=== PATIENT | female | born 1990 | race Caucasian/White ===

== ENCOUNTER 2020-04-21 14:15 | Outpatient (CLI) | payer SELFPAY ==
[2020-04-21 14:50] VITALS: BP 109/63
[2020-04-21] MEDS ORDERED: ACETAMINOPHEN 500 MG TAB PO ONE (16:29)
[2020-04-21] MEDS ORDERED: LACTATED RINGERS 500 ML IV ONE (16:29)
== END 2020-04-21 16:37 | disposition home or self-care (01) ==
LOC: APU 14:15 → TRG 14:15
PROVIDERS: ATTEND Obstetrics & Gynecology
DX: O26.893 Other specified pregnancy related conditions, third trimester (principal); R10.9 Unspecified abdominal pain; Z3A.36 36 weeks gestation of pregnancy
CPT/HCPCS: 59025

== ENCOUNTER 2020-05-08 17:37 | Outpatient (CLI) | payer OTHER ==
[2020-05-08 18:04] VITALS: BP 118/70
[2020-05-08] MEDS ORDERED: FLUCONAZOLE 100 MG/10 ML ORAL SYRINGE PO ONE (19:00)
== END 2020-05-08 20:15 | disposition home or self-care (01) ==
LOC: TRG 17:37 → APU 17:39 → TRG 20:15
PROVIDERS: ATTEND Obstetrics & Gynecology
DX: Z34.93 Encounter for supervision of normal pregnancy, unspecified, third trimester (principal); Z3A.38 38 weeks gestation of pregnancy
CPT/HCPCS: 36415; 59025; 84112; J1450

== ENCOUNTER 2020-05-17 17:14 | Inpatient (IN) | payer OTHER ==
[2020-05-17 17:51] LABS: Bacteria,Urine 1+ /HPF (Negative); Bilirubin,Urine NEG (Negative); Blood,Urine NEG (Negative); Color,Urine Yellow (Yellow); Mucus,Urine 2+ /HPF; Protein,Urine <15 mg/dL mg/dL (Negative)
[2020-05-17 17:56] LABS: Amphetamine Screen,Urine Negative; Benzodiazepines Screen,Urine Negative; Cannabinoid Screen,Urine Negative; Cocaine Screen,Urine Negative; Methadone Screen,Urine Negative; Opiate Screen,Urine Negative
[2020-05-17] MEDS ORDERED: LACTATED RINGERS 1,000 ML ONE (18:20)
[2020-05-17] MEDS ORDERED: miSOPROStol 200 MCG TAB PR PRN (18:28)
[2020-05-17] MEDS ORDERED: ONDANSETRON 4 MG/2 ML INJ IV PRN ×2 (18:28→23:07)
[2020-05-17] MEDS ORDERED: fentaNYL 100 MCG/2 ML INJ IV PRN (18:28)
[2020-05-17] MEDS ORDERED: MINERAL OIL 30 ML ORAL LIQD PO PRN (18:28)
[2020-05-17] MEDS ORDERED: METHYLERGONOVINE MALEATE 0.2 MG/ML VIAL IM PRN (18:28)
[2020-05-17] MEDS ORDERED: ePHEDrine SULFATE 50 MG/1 ML INJ IV PRN (18:28)
[2020-05-17] MEDS ORDERED: CARBOPROST TROMETHAMINE 250 MCG/1 ML INJ IM PRN (18:28)
[2020-05-17] MEDS ORDERED: TERBUTALINE 1 MG/1 ML INJ SUB-Q PRN (18:28)
[2020-05-17] MEDS ORDERED: OXYTOCIN 10 UNIT/1 ML INJ IM PRN (18:28)
[2020-05-17] MEDS ORDERED: LACTATED RINGERS 1,000 ML IV SCH (18:30)
--- NOTE | 2020-05-17 18:36 | History and Physical Report ---
History of Present Illness Date of examination: 05/17/20 Chief complaint: labor contractions History of present illness: pt reports care until December, EDC 05/19/2020 Pt reports hx x 4 - denies hx c/s, uterine surgery, shoulder dystocia, 4th degree or PPH. 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: cancer, chlamydia, fibroids, gonorrhea, hepatitis B, hepatitis C, herpes, HIV, syphilis, trichomonas Family/Genetic History: none - Obstetrical History Expected Date of Delivery: 05/19/20 Actual Gestation: 39 Week(s) 5 Day(s) : 5 Para: 4 Hx # Term Pregnancies: 4 Number of Pregnancies: 0 Spontaneous Abortions: 0 Induced : 0 Number of Living Children: 4 Medications and Allergies Allergies Allergy/AdvReac Type Severity Reaction Status Date / Time No Known Allergies Allergy Verified 05/17/20 17:22 Active Meds: Active Medications Carboprost Tromethamine (Carboprost Tromethamine 250 Mcg/1 Ml Inj) 250 mcg IM ONCE PRN PRN Reason: Uterine Bleeding Ephedrine Sulfate (Ephedrine Sulfate 50 Mg/1 Ml Inj) 10 mg IV Q2M PRN PRN Reason: Hypotension Fentanyl (Fentanyl 100 Mcg/2 Ml Inj) 100 mcg IV Q2H PRN PRN Reason: Pain,Severe (7-10) LABOR PAIN Lactated Ringer's (Lactated Ringers) 1,000 mls @ 125 mls/hr IV DIRECT GIRISH Oxytocin/Sodium Chloride (Pitocin/Ns 30 Unit/500ml) 30 units in 500 mls @ 40 mls/hr IV TITR GIRISH; Protocol Ampicillin Sodium (Ampicillin/Ns 2 Gm/100 Ml) 2 gm in 100 mls @ 100 mls/hr IV ONCE ONE; Protocol Stop: 05/17/20 19:27 Ampicillin Sodium (Ampicillin/Ns 1 Gm/50 Ml) 1 gm in 50 mls @ 100 mls/hr IV Q4H GIRISH; Protocol Lidocaine (Lidocaine (2%) 20 Mg/1 Ml Vial 20 Ml Mdv) 20 ml INFILTRATI ONCE ONE Stop: 05/17/20 18:29 Methylergonovine Maleate (Methylergonovine Maleate 0.2 Mg/Ml Vial) 0.2 mg IM ONCE PRN PRN Reason: Uterine Bleeding Mineral Oil (Mineral Oil 30 Ml Oral Liqd) 30 ml PO QHS PRN PRN Reason: Constipation Misoprostol (Misoprostol 200 Mcg Tab) 800 mcg MO ONCE PRN PRN Reason: Uterine Bleeding Ondansetron HCl (Ondansetron 4 Mg/2 Ml Inj) 4 mg IV Q8H PRN PRN Reason: Nausea And Vomiting Oxytocin (Oxytocin 10 Unit/1 Ml Inj) 10 unit IM ONCE PRN PRN Reason: Uterine Bleeding Terbutaline Sulfate (Terbutaline 1 Mg/1 Ml Inj) 0.25 mg SUB-Q ONCE PRN PRN Reason: Hyperstimulation/Hypertonicity Review of Systems All systems: negative - Vital Signs Vital signs: Vital Signs Pulse Ox 91 05/08/20 19:23 Temp Pulse Resp BP Pulse Ox 98.6 F 110 H 20 117/72 98 05/17/20 17:42 05/17/20 18:25 05/17/20 17:42 05/17/20 17:42 05/17/20 18:25 - Physical Exam Cardiovascular: Regular rate Lungs: Positive: Clear to auscultation, Normal air movement Abdomen: Positive: normal appearance, soft Genitourinary (Female): Positive: normal external genitalia, normal perenium Vulva: both: normal Vagina: Positive: normal moisture Uterus: Positive: normal size, normal contour Anus/Rectum: Positive: normal perianal skin Extremities: Positive: normal Deep Tendon Reflex Grade: Normal +2 - Obstetrical FHR: category 1 Uterine Contraction Monitor Mode: External Cervical Dilatation: 8 (cephalic, IBOW) Cervical Effacement Percentage: 100 station: 0 Uterine Contraction Frequency (min): 3-6 Uterine Contraction Duration: 60 Uterine Contraction Pattern: Regular Uterine Tone Measurement Phase: Contraction Uterine Contraction Intensity: Strong/Firm Results Abnormal lab results 05/17/20 Range/Units Unknown Urine WBC (Auto) 25.0 H (0.0-6.0) /HPF All other labs normal. Assessment and Plan pt arrived to triage with c/o contractions. states EDC 05/19/2020. anticipate - Patient Problems (1) 39 weeks gestation of Current Visit: Yes Status: Acute (2) Active labor at term Current Visit: Yes Status: Acute (3) GBS screening not performed Current Visit: Yes Status: Acute Plan to address problem: Ampicllin q4hr until delivery (4) Limited care in third trimester Current Visit: Yes Status: Acute Plan to address problem: OB labs ordered NICU made aware
[2020-05-17] MEDS ORDERED: OXYTOCIN DRIP 30 UNITS/500 ML BAG IV SCH (19:00)
[2020-05-17] MEDS ORDERED: AMPICILLIN/NS 2 GM/100 ML 2 GM/100 ML BAG IV ONE (19:00)
[2020-05-17 19:37] LABS: Hematocrit 35.6 % (30.3-42.9); Hemoglobin 12.1 gm/dl (10.1-14.3); Mean Corpuscular HGB Conc 34 % (30-34); Mean Corpuscular Volume 86 fl (79-97); Platelet Count 185 K/mm3 (140-440); Red Blood Count 4.14 M/mm3 (3.65-5.03); Red Cell Distribution Width 14.5 % (13.2-15.2)
[2020-05-17 19:46] LABS: Hepatitis C Virus Antibody Non-Reactive (NonReactive)
[2020-05-17] MEDS ORDERED: LIDOCAINE (2%) 20 MG/1 ML VIAL 20 ML MDV INFILTRATI ONE (20:00)
--- NOTE | 2020-05-17 20:10 | Procedure Note ---
OB Delivery Note - Delivery Date of Delivery: 05/17/20 () [employer] Structure Assembler: BLAIRE SELBY Estimated blood loss: 300cc - Vaginal Delivery presentation: vertex Delivery position: OA (SHANITA) Intrapartum events: no care Delivery induction: none Delivery monitor: external FHT, external uterine Route of delivery: Delivery placenta: spontaneous Delivery cord: 3 umbilical vessels Episiotomy: none Delivery laceration: none Anesthesia: intravenous Delivery comments: female born over intact perineum, SROM at delivery clear fluid. Infant placed skin to skin on mother's abdomen. 3 vessel cord clamped and cut after cessation of pulsation. Placenta delivered intact and complete. Pit to IVF. no lacerations to repair. fundus firm. lochia scan. EBL 200. Apgars 8/9, wt 7#2oz, all counts correct. mother and baby LDR stable. - Infant A at 1 minute: 8 at 5 minutes: 9 Gender: Female (7#2)
[2020-05-17] MEDS ORDERED: AMPICILLIN/NS 1 GM/50 ML 1 GM/50 ML BAG IV SCH (23:00)
[2020-05-17] MEDS ORDERED: WITCH HAZEL/ GLYCERIN PAD TP PRN (23:07)
[2020-05-17] MEDS ORDERED: BENZOCAINE/MENTHOL 20/0.5% TOP SPRAY 56 GM TP PRN (23:07)
[2020-05-17] MEDS ORDERED: diphenhydrAMINE 25 MG CAP PO PRN (23:07)
[2020-05-17] MEDS ORDERED: MAGNESIUM HYDROXIDE (MOM) ORAL LIQD UDC PO PRN (23:07)
[2020-05-17] MEDS ORDERED: LANOLIN/ZINC/DIMETHICONE (LANSINOH) 7 GM TP PRN (23:07)
[2020-05-17] MEDS ORDERED: PROMETHAZINE 25 MG TAB PO PRN (23:07)
[2020-05-17] MEDS: IBUPROFEN 800 MG TAB PO SCH (23:30)
[2020-05-17] MEDS: FERROUS SULFATE 325 MG TAB PO SCH (23:30)
[2020-05-18 09:02] LABS: Hematocrit 31.8 % (30.3-42.9); Hemoglobin 10.6 gm/dl (10.1-14.3)
[2020-05-18] MEDS: PRENATAL VIT27-FE FUMARATE-FOLIC ACID VIT TAB PO SCH (10:07)
[2020-05-18] MEDS: FERROUS SULFATE 325 MG TAB PO SCH ×2 (10:07→22:30)
[2020-05-18] MEDS: IBUPROFEN 800 MG TAB PO SCH ×3 (11:58→23:47)
--- NOTE | 2020-05-18 17:45 | Progress Note ---
Assessment and Plan A: 29 y.o. s/p @ term, no care. Doing well . P: Continue with care. Pt to be seen by case management before discharge home. Anticipate discharge home on 05/19. Subjective - Subjective Date of service: 05/18/20 (Pt doing well. ) Principal diagnosis: s/p @ term, no care Patient reports: appetite normal, voiding normally, pain well controlled, flatus, ambulating normally [place]: doing well Objective - Vital Signs Latest vital signs: Vital Signs Temp Pulse Resp BP BP Pulse Ox 05/18/20 12:15 97.5 F L 87 18 103/52 94 05/18/20 08:49 98.0 F 89 18 105/53 93 05/18/20 04:39 98.1 F 102 H 18 107/59 95 05/18/20 02:30 98.1 F 92 H 16 106/58 98 05/17/20 23:30 18 05/17/20 22:04 98.2 F 106 H 18 110/62 97 05/17/20 21:00 98.6 F 19 05/17/20 20:56 96 H 129/64 05/17/20 20:41 102 H 129/60 05/17/20 20:26 99 H 133/74 05/17/20 20:11 101 H 135/75 05/17/20 19:57 105 H 131/76 05/17/20 19:42 101 H 129/81 05/17/20 19:27 105 H 119/76 05/17/20 18:43 107 H 131/79 05/17/20 18:25 110 H 98 05/17/20 18:20 102 H 97 05/17/20 18:15 95 H 98 05/17/20 18:10 96 H 99 05/17/20 18:05 96 H 98 05/17/20 18:00 108 H 96 05/17/20 17:55 115 H 97 05/17/20 17:50 104 H 97 05/17/20 17:45 108 H 98 Intake and Output 05/18/20 05/18/20 05/18/20 06:59 14:59 22:59 Intake Total 600 Output Total 500 Balance 100 Intake: Intake, Free Water 240 Tube Feeding 360 Output: Urine 500 Void 500 Other: Total, Intake Amount 360 Total, Output Amount 500 # Voids Void 2 - Exam Breasts: Present: deferred Cardiovascular: Present: Regular rate Lungs: Present: Normal air movement Abdomen: Present: normal appearance, soft Uterus: Present: normal, firm - Labs Labs: Abnormal lab results 05/17/20 05/17/20 Range/Units 19:00 Unknown WBC 14.4 H (4.5-11.0) K/mm3 Urine WBC (Auto) 25.0 H (0.0-6.0) /HPF
[2020-05-19] MEDS: IBUPROFEN 800 MG TAB PO SCH ×2 (06:05→12:01)
--- NOTE | 2020-05-19 07:42 | Discharge Summary ---
Providers - Providers Date of Admission: 05/17/20 18:49 Date of discharge: 05/19/20 (pt agrees to d/c) Attending physician: DARY DEMPSEY 05/17/20 23:07 Consult to Case Management [CONS] Routine Services Needed at Discharge: Top Lift Cutter Notified:: yes Phone number called:: [phone] Was contact made?: No Time called:: 09:02 Comment:: computer input Additional Physician Instructions: limted care Primary care physician: [employer] Hospitalization Reason for admission: active labor, IUP at term Delivery: Episiotomy: none Laceration: none Incision: normal Other procedures: none complications: none Discharge diagnosis: IUP at term delivered baby: female Hospital course: uncomplicated precipitous delivery no care Pt OOB ambulating in room caring for NB. No c/o voiced VSS FF below umb Lochia small Perineum intact H&H 12/30 stable No s/sx of anemia. Doing well s/p vag del. P: d/c today with instructions Condition at discharge: Good Disposition: DC-01 TO HOME OR SELFCARE - Discharge Diagnoses (1) Spontaneous vaginal delivery Status: Acute Comment: RTO 6 weeks PP care Plan - Provider Discharge Summary Activity: routine, no sex for 6 weeks, no heavy lifting 4 weeks, no strenuous exercise Diet: routine Instructions: routine Additional instructions: [] Smoking cessation referral if applicable(refer to patient education folder for contact #) [] Refer to [facility]'s [facility] Booklet Call your doctor immediately for: * Fever > 100.5 * Heavy vaginal bleeding ( >1 pad per hour) * Severe persistent headache * Shortness of breath * Reddened, hot, painful area to leg or breast * Drainage or odor from incision. * Keep incision clean and dry at all times and follow doctor's instructions regarding bathing/showering - Follow up plan Follow up: PRIMARY CARE, [Primary Care Provider] - 7 Days ROSLYN MICHELE CNM [Advanced Practice Nurse] - 6 Weeks (Congratulations! Call for a visit in 6 weeks. Motrin/ibuprofen for cramping/pain.)
[2020-05-19] MEDS: PRENATAL VIT27-FE FUMARATE-FOLIC ACID VIT TAB PO SCH (12:03)
[2020-05-19] MEDS: FERROUS SULFATE 325 MG TAB PO SCH (12:04)
[2020-05-19 16:38] VITALS: BP 113/67
== END 2020-05-19 17:30 | disposition home or self-care (01) | DRG 807 ==
LOC: TRG 17:14 → APU 17:15 → TRG 18:47 → LD 18:49 → OB 21:32
PROVIDERS: ADMIT Obstetrics & Gynecology; ATTEND Obstetrics & Gynecology
PROC: 10E0XZZ Delivery of Products of Conception, External Approach (ICD-10-PCS; principal; 2020-05-17)
DX: O62.3 Precipitate labor (principal); Z37.0 Single live birth; Z3A.39 39 weeks gestation of pregnancy; Z20.822 Contact with and (suspected) exposure to COVID-19
CPT/HCPCS: 36415; 59025; 80307; 81001; 85014; 85018; 85027; 86592; 86706; 86762; 86803; 86850; 86900; 86901; 87086; 87806; 96360; 96366; 96374; G0378; J0290; J2590; J3010; J7120; U0003